=== PATIENT | male | born 1970 | race Caucasian/White ===

== ENCOUNTER 2024-04-15 21:25 | Emergency (ER) | payer MEDICAID ==
[~2024-04-15] VITALS: Ht 193 cm; Wt 140.6 kg
[~2024-04-15 21:25] MED LIST: METFORMIN1000 MG; NOVOLOG 70/30 M10 ML
[2024-04-15 22:00] LABS: HEMATOCRIT 47.3 % (42.0-52.0); MEAN CELL VOLUME 88.4 fl (80.0-94.0); MEAN CORPUSCULAR HGB 29.7 pg (27.0-31.0); MEAN CORPUSCULAR HGB CONC 33.6 g/dl (33.0-37.0); MEAN PLATELET VOLUME 10.4 fl (9.6-12.3); PLATELET COUNT AUTOMATED 280 10*3/uL (130-400); RED BLOOD COUNT 5.35 10*6/uL (4.50-5.90); RED CELL DISTRI WIDTH 13.3 % (0-14.5)
[2024-04-15 22:02] LABS: MANUAL DIFF REFLEX YES
[2024-04-15 22:15] LABS: BUN 18 mg/dl (9-23); CHLORIDE 101 mmol/L (98-107); POTASSIUM 3.4 mmol/L (3.4-5.1)
[2024-04-15 22:36] LABS: PLATELET SUFFICIENCY NORMAL (NORMAL); TOTAL CELLS COUNTED 100 #CELLS
[2024-04-15 22:37] LABS: BURR CELLS FEW
[2024-04-15] MEDS ORDERED: SODIUM CHLORIDE 0.9% 1,000 ML IV ONE ×2 (23:20)
[2024-04-15] MEDS ORDERED: Ketorolac Tromethamine 30 MG/ML VIAL IV ONE (23:20)
[2024-04-15] MEDS ORDERED: INSULIN REGULAR, HUMAN 1 UNIT/0.01 ML IV ONE (23:30)
[2024-04-15] MEDS ORDERED: Albuterol Sulf/Ipratropium 3 ML VIAL NEB ONE (23:55)
== END 2024-04-16 01:40 | disposition left against medical advice (07) ==
LOC: ED 21:25
PROVIDERS: Internal Medicine
DX: R05.9 Cough, unspecified (principal); Z20.822 Contact with and (suspected) exposure to COVID-19; R09.89 Other specified symptoms and signs involving the circulatory and respiratory systems; Z53.29 Procedure and treatment not carried out because of patient's decision for other reasons; E11.9 Type 2 diabetes mellitus without complications; Z79.4 Long term (current) use of insulin

== ENCOUNTER 2024-06-05 16:32 | Emergency (ER) | payer MEDICAID ==
[~2024-06-05] VITALS: Ht 193 cm; Wt 122.5 kg
[2024-06-05 16:53] LABS: BASO % 0.4 % (0.0-1.0); EOS # 0.1 10*3/uL (0.0-0.4); EOS % 0.7 % (1.0-4.0); HEMATOCRIT 40.2 % (42.0-52.0); MEAN CELL VOLUME 92.2 fl (80.0-94.0); MEAN CORPUSCULAR HGB 29.8 pg (27.0-31.0); MEAN CORPUSCULAR HGB CONC 32.3 g/dl (33.0-37.0); MEAN PLATELET VOLUME 9.1 fl (9.6-12.3); MONO # 0.4 10*3/uL (0.1-1.0); MONO % 5.2 % (3.0-9.0); NEUT # 6.9 10*3/uL (2.3-7.9); NEUT % 81.3 % (47.0-73.0); PLATELET COUNT AUTOMATED 353 10*3/uL (130-400); RED BLOOD COUNT 4.36 10*6/uL (4.50-5.90); RED CELL DISTRI WIDTH 14.6 % (0-14.5); WHITE BLOOD COUNT 8.5 10*3/uL (4.8-10.8)
[2024-06-05] MEDS ORDERED: BUMETANIDE1 MG PO (16:59)
[2024-06-05] MEDS ORDERED: LEVOTHYROXINE50 MCG PO (16:59)
[2024-06-05] MEDS ORDERED: BROVANA15 MCG/2 M INH (17:04)
[2024-06-05] MEDS ORDERED: ATORVASTATIN CA40 M1 PO (17:05)
[2024-06-05] MEDS ORDERED: ATENOLOL100 M1 PO (17:06)
[2024-06-05] MEDS ORDERED: LANTUS100 UNIT/1 SQ (17:10)
[2024-06-05] MEDS ORDERED: PULMICORT0.5 MG/21 INH (17:13)
[2024-06-05] MEDS ORDERED: FENOFIBRATE145 M1 PO (17:14)
[2024-06-05 17:15] LABS: BUN 7 mg/dl (9-23); CHLORIDE 97 mmol/L (98-107)
[2024-06-05] MEDS ORDERED: TYLENOL325 M2 PO (17:20)
[2024-06-05] MEDS ORDERED: BISACODYL10 MG R (17:22)
[2024-06-05] MEDS ORDERED: FLEET ENEMA 13133 ML R (17:23)
[2024-06-05] MEDS ORDERED: MILK OF MA400 MG/52 PO (17:25)
[2024-06-05] MEDS ORDERED: Ipratropium Brom3 ML INH (17:27)
[2024-06-05] MEDS ORDERED: GLUCOSE2 GM PO (17:29)
[2024-06-05] MEDS ORDERED: HYSEPT MC (17:30)
[2024-06-05] MEDS ORDERED: TRAMADOL HCL50 MG PO (17:30)
[2024-06-05] MEDS ORDERED: POTASSIUM CHLORIDE 20 MEQ TAB PO ONE (17:30)
[2024-06-05] MEDS ORDERED: ZITHROMAX250 MG PO (18:49)
== END 2024-06-05 19:15 | disposition home or self-care (01) ==
LOC: ED 16:32
PROVIDERS: Nurse Practitioner Family
DX: S02.2XXA Fracture of nasal bones, initial encounter for closed fracture (principal); S00.83XA Contusion of other part of head, initial encounter; E11.9 Type 2 diabetes mellitus without complications; Z79.899 Other long term (current) drug therapy; W18.39XA Other fall on same level, initial encounter; Y93.89 Activity, other specified; Y92.89 Other specified places as the place of occurrence of the external cause; Y99.8 Other external cause status